=== PATIENT | female | born 1995 | race Caucasian/White ===

== ENCOUNTER 2016-09-25 19:43 | Emergency (ER) | payer MEDICAID ==
[2016-09-25 20:20] VITALS: BP 121/69
[2016-09-25] MEDS ORDERED: Sodium Chloride 0.9% 1,000 ML IV ONE (21:34)
--- NOTE | 2016-09-25 21:40 | EDM.PDOC ---
ED HPI GENERAL MEDICAL PROBLEM - General Chief Complaint: General Stated Complaint: LIGHTHEADED,DIZZINESS,FATIGUE Time Seen by Provider: 09/25/16 21:25 Source of Information: Reports: Patient History Limitations: Reports: No limitations - History of Present Illness INITIAL COMMENTS - FREE TEXT/NARRATIVE: This 21 yo female patient reports to the ED with intermittent dizziness and nausea for the past 2 weeks. The patient reports she is currently and had a WIC appointment this morning. During her WIC appointment, the patient was advised that her hemoglobin was a little low and that she should contact her provider. The patient did not have time to get into her primary care facility today. When she got up from a nap, the patient noticed the dizziness and called her mother to bring her into the ED for evaluation. The patient reports she has not been eating well, but has been drinking plenty of fluids. Onset: gradual Duration: Week(s):, Intermittent Location: Reports: generalized Quality: Reports: Dull Severity: moderate Improves with: Reports: None Worsens with: Reports: None Context: Reports: Other Treatments MANAGER COST: Reports: Other (see below) Right Headache Pain Score (Numeric/FACES): 6 - Related Data Allergies Allergy/AdvReac Type Severity Reaction Status Date / Time No Known Allergies Allergy Verified 09/25/16 20:10 Home Meds: Home Meds Albuterol Sulfate [Ventolin Hfa] 1 puff INH Q8H 10/30/15 [History] Pnv No.122/Iron/Folic Acid [ Multi Tablet] 1 tab PO DAILY 09/04/16 [ History] Past Medical History - Past Health History Medical/Surgical History: Denies Medical/Surgical History HEENT History: Reports: None Cardiovascular History: Reports: None Respiratory History: Reports: Asthma Gastrointestinal History: Reports: None Genitourinary History: Reports: None HEALTH OUTCOMES LIAISON History: Reports: Musculoskeletal History: Reports: None Neurological History: Reports: None Psychiatric History: Reports: None Endocrine/Metabolic History: Reports: None Hematologic History: Reports: None Immunologic History: Reports: None Oncologic (Cancer) History: Reports: None Dermatologic History: Reports: None - Infectious Disease History Infectious Disease History: Reports: None - Past Surgical History Head Surgeries/Procedures: Reports: None HEENT Surgical History: Reports: Adenoidectomy, Tonsillectomy GI Surgical History: Reports: Appendectomy Social & Family History - Family History Family Medical History: Noncontributory - Tobacco Use Smoking Status *Q: Light Tobacco Smoker Years of Tobacco use: 4 Packs/Tins Daily: 0.2 Used Tobacco, but Quit: No Month Tobacco Last Used: 11/2014 Second Hand Smoke Exposure: Yes - Caffeine Use Caffeine Use: Reports: None - Alcohol Use Days Per Week of Alcohol Use: 0 - Recreational Drug Use Recreational Drug Use: No - Living Situation & Occupation Living situation: Reports: single, with family Occupation: student (and employed) ED ROS GENERAL - Review of Systems Review Of Systems: See Below Constitutional: Reports: no symptoms HEENT: Reports: No symptoms Respiratory: Reports: no symptoms Cardiovascular: Reports: Lightheadedness (intermittent ) Endocrine: Reports: no symptoms GI/Abdominal: Reports: No symptoms : Reports: no symptoms Musculoskeletal: Reports: no symptoms Skin: Reports: no symptoms Neurological: Reports: no symptoms Psychiatric: Reports: No symptoms Hematologic/Lymphatic: Reports: anemia (reported by WIC this morning) Immunologic: Reports: no symptoms ED EXAM, GENERAL - Physical Exam Exam: See Below Exam Limited By: No limitations General Appearance: alert, WD/WN, mild distress Eye Exam: bilateral eye: EOMI, normal inspection, PERRL Ears: normal external exam, normal canal, hearing grossly normal, normal TMs Nose: normal inspection, normal mucosa, no blood Throat/Mouth: Normal inspection, Normal lips, Normal teeth, Normal gums, Normal oropharynx, Normal voice, No airway compromise Head: atraumatic, normocephalic Neck: normal inspection, supple, non-tender, full range of motion Respiratory/Chest: no respiratory distress, lungs clear, normal breath sounds, no accessory muscle use, chest non-tender Cardiovascular: normal peripheral pulses, regular rate, rhythm, no edema, no gallop, no JVD, no murmur, no rub GI/Abdominal: normal bowel sounds, soft, non tender, no organomegaly, no distention, no abnormal bruit, no mass (Female) Exam: Deferred Rectal (Female) Exam: Deferred Back Exam: normal inspection, full range of motion, NT Extremities: normal inspection, normal range of motion, non-tender, normal capillary refill, no pedal edema Neurological: alert, oriented, CN II-XII intact, normal cognition, normal gait, normal reflexes, no motor/sensory deficits Psychiatric: normal affect, normal mood Skin Exam: Warm, Dry, Intact, Normal color, No rash Lymphatic: no adenopathy Course - Vital Signs Last Recorded V/S: Last Vital Signs Temp 36.7 C 09/25/16 19:50 Pulse 75 09/25/16 19:50 Resp 16 09/25/16 19:50 BP 121/69 09/25/16 19:50 Pulse Ox 100 09/25/16 21:45 - Orders/Labs/Meds Orders: Active Orders 24 hr Category Date Time Status Sodium Chloride 0.9% [Normal Saline] 1,000 ml Med 09/25/16 21:34 Active IV .BOLUS Medication Orders Sodium Chloride (Normal Saline) 1,000 mls @ 999 mls/hr IV .BOLUS ONE Stop: 09/25/16 22:34 Last Admin: 09/25/16 22:00 Dose: 999 mls/hr Labs: Laboratory Tests 09/25/16 09/25/16 Range/Units 21:42 21:42 WBC 9.1 (5.0-10.0) 10^3/uL RBC 4.58 (4.2-5.4) 10^6/uL Hgb 10.5 L (12.0-16.0) g/dL Hct 34.6 L (37.0-47.0) % MCV 75.5 L (80-100) fL MCH 22.9 L (27.0-34.0) pg MCHC 30.3 L (33.0-35.0) g/dL Plt Count 220 (150-450) 10^3/uL Neut % (Auto) 56.2 (42.2-75.2) % Lymph % (Auto) 33.6 (20.5-50.1) % [place] % (Auto) 8.0 (2-8) % Eos % (Auto) 1.9 (1.0-3.0) % Baso % (Auto) 0.3 (0.0-1.0) % Sodium 137 (135-145) mmol/L Potassium 3.5 L (3.6-5.0) mmol/L Chloride 105 (101-111) mmol/L Carbon Dioxide 24.0 (21.0-31.0) mmol/L Anion Gap 11.5 BUN 10 (7-18) mg/dL Creatinine 0.5 L (0.6-1.3) mg/dL Est Cr Clr Drug Dosing 187.57 mL/min Estimated GFR (MDRD) > 60 BUN/Creatinine Ratio 20.00 Glucose 90 (74-105) mg/dL Calcium 8.5 (8.4-10.2) mg/dl Total Bilirubin 0.6 (0.2-1.0) mg/dL AST 18 (10-42) IU/L ALT 19 (10-60) IU/L Alkaline Phosphatase 51 (42-121) IU/L Total Protein 6.9 (6.7-8.2) g/dl Albumin 3.7 (3.2-5.5) g/dl Globulin 3.2 Albumin/Globulin Ratio 1.16 Meds: Medications Generic Name Dose Route Start Last Admin Trade Name Freq PRN Reason Stop Dose Admin Sodium Chloride 1,000 mls @ 999 mls/hr 09/25/16 21:34 09/25/16 22:00 Normal Saline IV 09/25/16 22:34 999 mls/hr .BOLUS ONE Administration Departure - Departure Time of Disposition: 22:45 Disposition: Home, Self-Care 01 Condition: fair Clinical Impression: Anemia affecting in first trimester Qualifiers: Weeks of gestation: 8 weeks Qualified Code(s): Z3A.08 - 8 weeks gestation of Instructions: First Trimester of , Jkon-ox-Asrx, Anemia, Nonspecific Forms: ED Department Discharge Care Plan Goals: The patient was advised of the examination and lab results during the visit. The patient was given a liter of IV fluids while in the ED. The patient was encouraged to continue to take her vitamins and eat small, frequent healthy meals. The patient should follow-up with her release specialist for continued evaluation and further management. If the patient has any additional symptoms or concerns, the patient should follow-up with her primary care facility or return to the emergency department. - My Orders Last 24 Hours: My Active Orders 09/25/16 21:34 Sodium Chloride 0.9% [Normal Saline] 1,000 ml IV .BOLUS - Assessment/Plan Last 24 Hours: My Active Orders 09/25/16 21:34 Sodium Chloride 0.9% [Normal Saline] 1,000 ml IV .BOLUS
[2016-09-25 22:08] LABS: CHLORIDE,CL 105 mmol/L (101-111); SODIUM,NA 137 mmol/L (135-145)
== END 2016-09-25 22:51 | disposition home or self-care (01) ==
LOC: DL.ED 19:43
DX: O99.011 Anemia complicating pregnancy, first trimester (principal); J45.909 Unspecified asthma, uncomplicated; O99.331 Smoking (tobacco) complicating pregnancy, first trimester; F17.210 Nicotine dependence, cigarettes, uncomplicated; Z3A.08 8 weeks gestation of pregnancy; Z98.890 Other specified postprocedural states; Z90.49 Acquired absence of other specified parts of digestive tract
CPT/HCPCS: 36415; 80053; 85025; 96360; 99283; J7030

== ENCOUNTER 2016-10-21 18:30 | Emergency (ER) | payer MEDICAID ==
[2016-10-21 18:46] VITALS: BP 115/65
--- NOTE | 2016-10-21 19:18 | EDM.PDOC ---
ED HISTORY OF PRESENT ILLNESS - General Chief Complaint: Respiratory Problem Stated Complaint: COUGHING W/CHEST PAIN AND SHORTNESS OF BREATH Time Seen by Provider: 10/21/16 19:00 Source of Information: Reports: Patient History Limitations: Reports: No limitations - History of Present Illness INITIAL COMMENTS - FREE TEXT/NARRATIVE: This 21 yo female patient reports to the ED with a 1 week history of a cough ( producing green sputum) and chest pain. The patient reports her chest pain started this afternoon at about 1300 and has continued since that time. The patient reports she is currently and has not had any problems during her . The patient reports no history of GERD, but her father reports he does have acid reflux. Symptom Onset Date: 10/14/16 Timing/Duration: Reports: Week(s): (1 week), Constant, Getting worse Severity: moderate Location, General: Reports: chest Quality: Reports: Ache, Dull Improves with: Reports: None Worsens with: Reports: Other (coughing and breathing) Context, General: Reports: Other Associated Symptoms (General): Reports: cough Treatments PRIMARY CARE PROVIDER: Reports: Cold therapy - Related Data Allergies/ADRs: Allergies Allergy/AdvReac Type Severity Reaction Status Date / Time No Known Allergies Allergy Verified 10/21/16 18:48 Home Meds: Home Meds Albuterol Sulfate [Ventolin Hfa] 1 puff INH Q8H 10/30/15 [History] Pnv No.122/Iron/Folic Acid [ Multi Tablet] 1 tab PO DAILY 09/04/16 [ History] Past Medical History - Past Health History Medical/Surgical History: Denies Medical/Surgical History HEENT History: Reports: None Cardiovascular History: Reports: None Respiratory History: Reports: Asthma Gastrointestinal History: Reports: None Genitourinary History: Reports: None 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: Musculoskeletal History: Reports: None Neurological History: Reports: None Psychiatric History: Reports: None Endocrine/Metabolic History: Reports: None Hematologic History: Reports: None Immunologic History: Reports: None Oncologic (Cancer) History: Reports: None Dermatologic History: Reports: None - Infectious Disease History Infectious Disease History: Reports: None - Past Surgical History Head Surgeries/Procedures: Reports: None HEENT Surgical History: Reports: Adenoidectomy, Tonsillectomy GI Surgical History: Reports: Appendectomy Social & Family History - Family History Family Medical History: Noncontributory - Tobacco Use Smoking Status *Q: Never Smoker Years of Tobacco use: 4 Packs/Tins Daily: 0.2 Used Tobacco, but Quit: No Month Tobacco Last Used: 11/2014 Second Hand Smoke Exposure: No - Caffeine Use Caffeine Use: Reports: Soda - Alcohol Use Days Per Week of Alcohol Use: 0 - Recreational Drug Use Recreational Drug Use: No - Living Situation & Occupation Living situation: Reports: single, with family Occupation: student (and employed) ED ROS GENERAL - Review of Systems Review Of Systems: See Below Constitutional: Reports: no symptoms HEENT: Reports: No symptoms Respiratory: Reports: Cough Cardiovascular: Reports: Chest pain Endocrine: Reports: no symptoms GI/Abdominal: Reports: No symptoms : Reports: no symptoms Musculoskeletal: Reports: no symptoms Skin: Reports: no symptoms Neurological: Reports: No Symptoms Psychiatric: Reports: No symptoms Hematologic/Lymphatic: Reports: no symptoms Immunologic: Reports: no symptoms ED EXAM, GENERAL - Physical Exam Exam: See Below Exam Limited By: No limitations General Appearance: alert, WD/WN, mild distress Eye Exam: bilateral eye: EOMI, normal inspection, PERRL Ears: normal external exam, normal canal, hearing grossly normal, normal TMs Nose: normal inspection, normal mucosa, no blood Throat/Mouth: Normal inspection, Normal lips, Normal teeth, Normal gums, Normal oropharynx, Normal voice, No airway compromise Head: atraumatic, normocephalic Neck: normal inspection, supple, non-tender, full range of motion Respiratory/Chest: rhonchi (bilateral bases), other (anterior chest pain) Cardiovascular: normal peripheral pulses, regular rate, rhythm, no edema, no gallop, no JVD, no murmur, no rub GI/Abdominal: normal bowel sounds, soft, non tender, no organomegaly, no distention, no abnormal bruit, no mass (Female) Exam: Deferred Rectal (Female) Exam: Deferred Back Exam: normal inspection, full range of motion, NT Extremities: normal inspection, normal range of motion, non-tender, normal capillary refill, no pedal edema Neurological: alert, oriented, CN II-XII intact, normal cognition, normal gait, normal reflexes, no motor/sensory deficits Psychiatric: normal affect, normal mood Skin Exam: Warm, Dry, Intact, Normal color, No rash Lymphatic: no adenopathy Course - Vital Signs Last Recorded V/S: Last Vital Signs Temp 35.9 C 10/21/16 18:40 Pulse 95 10/21/16 18:40 Resp 16 10/21/16 18:40 BP 115/65 10/21/16 18:40 Pulse Ox 100 10/21/16 18:40 - Orders/Labs/Meds Orders: Active Orders 24 hr Category Date Time Status EKG Documentation Completion [RC] URGENT Care 10/21/16 19:10 Active Labs: Laboratory Tests 10/21/16 10/21/16 Range/Units 19:25 19:25 WBC 12.7 H (5.0-10.0) 10^3/uL RBC 4.51 (4.2-5.4) 10^6/uL Hgb 10.6 L (12.0-16.0) g/dL Hct 33.7 L (37.0-47.0) % MCV 74.7 L (80-100) fL MCH 23.5 L (27.0-34.0) pg MCHC 31.5 L (33.0-35.0) g/dL Plt Count 218 (150-450) 10^3/uL Neut % (Auto) 76.7 H (42.2-75.2) % Lymph % (Auto) 16.4 L (20.5-50.1) % [place] % (Auto) 6.3 (2-8) % Eos % (Auto) 0.5 L (1.0-3.0) % Baso % (Auto) 0.1 (0.0-1.0) % Sodium 135 (135-145) mmol/L Potassium 3.7 (3.6-5.0) mmol/L Chloride 102 (101-111) mmol/L Carbon Dioxide 23.0 (21.0-31.0) mmol/L Anion Gap 13.7 BUN 9 (7-18) mg/dL Creatinine 0.6 (0.6-1.3) mg/dL Est Cr Clr Drug Dosing TNP Estimated GFR (MDRD) > 60 BUN/Creatinine Ratio 15.00 Glucose 80 (74-105) mg/dL Calcium 9.1 (8.4-10.2) mg/dl Total Bilirubin 0.8 (0.2-1.0) mg/dL AST 16 (10-42) IU/L ALT 19 (10-60) IU/L Alkaline Phosphatase 55 (42-121) IU/L Troponin I < 0.02 (0.00-0.02) ng/ml Total Protein 6.9 (6.7-8.2) g/dl Albumin 3.6 (3.2-5.5) g/dl Globulin 3.3 Albumin/Globulin Ratio 1.09 Meds: Medications Discontinued Medications Generic Name Dose Route Start Last Admin Trade Name Dori PRN Reason Stop Dose Admin Azithromycin 500 mg 10/21/16 20:04 Zithromax PO 10/21/16 20:05 ONETIME ONE Departure - Departure Time of Disposition: 20:05 Disposition: Home, Self-Care 01 Condition: fair Clinical Impression: Bronchitis, Bronchitis Instructions: Acute Bronchitis, [id number] Forms: ED Department Discharge Care Plan Goals: The patient and family were advised of the examination and lab results during the visit. The patient was given an oral dose of Azithromycin (500 mg) while in the ED. The patient was given a script for Azithromycin (250 mg) #4 to take 1 by mouth daily for 4 days. If the patient has any additional symptoms or further concerns, the patient should follow-up with her primary care provider or return to the emergency department. - My Orders Last 24 Hours: My Active Orders 10/21/16 19:10 EKG Documentation Completion [RC] URGENT - Assessment/Plan Last 24 Hours: My Active Orders 10/21/16 19:10 EKG Documentation Completion [RC] URGENT
[2016-10-21 19:50] LABS: CHLORIDE,CL 102 mmol/L (101-111); SODIUM,NA 135 mmol/L (135-145)
[2016-10-21] MEDS ORDERED: Azithromycin 250 MG Tab PO ONE (20:04)
--- NOTE | 2016-12-12 12:14 | EKG ---
10/21/2016 - TARA FAY - EKG is sinus rhythm with a rate of 83. Normal LA interval. Normal axis. EKG is within normal limits. [facility] /[id number]
== END 2016-10-21 20:11 | disposition home or self-care (01) ==
LOC: DL.ED 18:30
DX: J40 Bronchitis, not specified as acute or chronic (principal); Z98.890 Other specified postprocedural states; Z90.49 Acquired absence of other specified parts of digestive tract
CPT/HCPCS: 36415; 80053; 84484; 85025; 93005; 99283; A9270

== ENCOUNTER 2017-03-09 20:20 | Emergency (ER) | payer MEDICAID ==
[2017-03-09 20:34] VITALS: BP 115/70
[2017-03-09] MEDS ORDERED: Albuterol/Ipratropium 3.0-0.5 MG/3 ML Neb Soln NEB ONE (20:43)
--- NOTE | 2017-03-09 20:49 | EDM.PDOC ---
[id number]: CHEST PAIN, HARD TO BREATH, [id number] Time Seen by Provider: 03/09/17 20:43 Source of Information: Reports: Patient History Limitations: Reports: No Limitations - History of Present Illness INITIAL COMMENTS - FREE TEXT/NARRATIVE: been coughing few days worse today. also Chest Pain Score (Numeric/FACES): 7 - Related Data Allergies Allergy/AdvReac Type Severity Reaction Status Date / Time No Known Allergies Allergy Verified 03/09/17 20:34 Home Meds: Home Meds Albuterol Sulfate [Ventolin Hfa] 2 puff INH Q8H PRN 10/30/15 [History] Pnv No.122/Iron/Folic Acid [ Multi Tablet] 1 tab PO DAILY 09/04/16 [ History] Acetaminophen [Tylenol Extra Strength] 2 tab PO Q6H PRN 02/01/17 [History] Past Medical History - Past Health History Medical/Surgical History: Denies Medical/Surgical History HEENT History: Reports: None Cardiovascular History: Reports: None Respiratory History: Reports: Asthma Gastrointestinal History: Reports: None Genitourinary History: Reports: None 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: Musculoskeletal History: Reports: None Neurological History: Reports: None Psychiatric History: Reports: None Endocrine/Metabolic History: Reports: None Hematologic History: Reports: Anemia Immunologic History: Reports: None Oncologic (Cancer) History: Reports: None Dermatologic History: Reports: None - Infectious Disease History Infectious Disease History: Reports: None - Past Surgical History Head Surgeries/Procedures: Reports: None HEENT Surgical History: Reports: Adenoidectomy, Tonsillectomy GI Surgical History: Reports: Appendectomy Social & Family History - Family History Family Medical History: Noncontributory - Tobacco Use Smoking Status *Q: Former Smoker Years of Tobacco use: 4 Packs/Tins Daily: 0.5 Used Tobacco, but Quit: Yes Month Tobacco Last Used: September Second Hand Smoke Exposure: No - Caffeine Use Caffeine Use: Reports: Energy Drinks, Soda - Alcohol Use Days Per Week of Alcohol Use: 0 - Recreational Drug Use Recreational Drug Use: No - Living Situation & Occupation Living situation: Reports: Single, with Family Occupation: Student ED ROS GENERAL - Review of Systems Review Of Systems: ROS reveals no pertinent complaints other than HPI. ED EXAM, GENERAL - Physical Exam Exam: See Below Exam Limited By: No Limitations General Appearance: Alert, WD/WN, No Apparent Distress, Other (episodic cough spasms) Ears: Normal External Exam, Normal Canal, Hearing Grossly Normal, Normal TMs Throat/Mouth: Normal Inspection, Normal Oropharynx, Normal Voice, No Airway Compromise Head: Atraumatic Neck: Non-Tender, Full Range of Motion Respiratory/Chest: No Respiratory Distress, No Accessory Muscle Use, Rhonchi, Wheezing. No: Decreased Breath Sounds, Retractions, Splinting Cardiovascular: Regular Rate, Rhythm GI/Abdominal: Soft, Non-Tender Neurological: Alert, Oriented, Normal Cognition, Normal Gait, No Motor/Sensory Deficits Psychiatric: Normal Affect, Normal Mood Skin Exam: Warm, Dry, Normal Color Lymphatic: No Adenopathy Course - Vital Signs Last Recorded V/S: Last Vital Signs Temp 36.4 C 03/09/17 20:28 Pulse 109 H 03/09/17 20:43 Resp 16 03/09/17 20:28 BP 115/70 03/09/17 20:28 Pulse Ox 98 03/09/17 20:28 - Orders/Labs/Meds Orders: Active Orders 24 hr Category Date Time Status RT Aerosol Therapy [RC] ASDIRECTED Care 03/09/17 20:43 Active Meds: Medications Discontinued Medications Generic Name Dose Route Start Last Admin Trade Name Freq PRN Reason Stop Dose Admin Albuterol/Ipratropium 3 ml 03/09/17 20:43 03/09/17 20:46 Duoneb 3.0-0.5 Mg/3 Ml NEB 03/09/17 20:44 3 ml ONETIME ONE Administration Departure - Departure Time of Disposition: 20:50 Disposition: Home, Self-Care 01 Condition: Good Clinical Impression: Bronchospasm with bronchitis, acute - Discharge Information Instructions: Acute Bronchitis, [id number] Forms: ED Department Discharge Additional Instructions: 1) rest 2) take neb treatment 2 to 3 times daily for wheezing. 3) don't sleep flat at ight 4) follow up at clinic or recheck as needed rx given; albuterol 2.5mg solution bid-tid prn - My Orders Last 24 Hours: My Active Orders 03/09/17 20:43 RT Aerosol Therapy [RC] ASDIRECTED - Assessment/Plan Last 24 Hours: My Active Orders 03/09/17 20:43 RT Aerosol Therapy [RC] ASDIRECTED
== END 2017-03-09 20:56 | disposition home or self-care (01) ==
LOC: DL.ED 20:20
DX: J20.9 Acute bronchitis, unspecified (principal); J45.909 Unspecified asthma, uncomplicated; Z90.49 Acquired absence of other specified parts of digestive tract; Z98.890 Other specified postprocedural states; Z87.891 Personal history of nicotine dependence; Z79.899 Other long term (current) drug therapy
CPT/HCPCS: 94640; 99283

== ENCOUNTER 2017-04-30 10:22 | Inpatient (IN) | payer MEDICAID ==
[2017-04-30] MEDS ORDERED: Misoprostol 400 MCG (4 X 100 MCG TAB) RECTAL PRN (11:55)
[2017-04-30] MEDS ORDERED: Carboprost Tromethamine 250 MCG/1 ML Amp IM PRN (11:55)
[2017-04-30] MEDS ORDERED: Ondansetron 4 MG/2 ML SDV IV PRN (11:55)
[2017-04-30] MEDS ORDERED: Acetaminophen 325 MG Tab PO PRN (11:55)
[2017-04-30] MEDS ORDERED: Lactated Ringers 500 ML IV ONE (11:55)
[2017-04-30] MEDS ORDERED: Nalbuphine 20 MG/1 ML Amp IM PRN (11:55)
[2017-04-30] MEDS ORDERED: Sodium Chloride 0.9% 10 ML Syringe FLUSH PRN (11:55)
[2017-04-30] MEDS ORDERED: Methylergonovine 0.2 MG/1 ML Amp IM PRN (11:55)
[2017-04-30] MEDS ORDERED: Lidocaine 1% 30 ML SDV INJECT PRN (11:55)
[2017-04-30] MEDS: Lactated Ringers 1,000 ML IV SCH ×2 (14:24→21:11)
[2017-04-30] MEDS: Oxytocin/Normal Saline 30 UNIT/500 ML BAG IV SCH (14:26)
--- NOTE | 2017-04-30 19:46 | HP ---
CHIEF COMPLAINT: Leaking fluid. HISTORY OF PRESENT ILLNESS: The patient is a 22-year-old 2, para 1-0-0- 1, currently at 39 and 6/7 weeks gestation based on 8-week ultrasound, reporting around 10 o'clock this morning. She felt a small gush of fluid that saturated her underwear, but not her clothes. Her boss told her to come in to work for evaluation. Nitrazine and AmniSure testing are both positive. She is reporting some cramping or mild contractions, but nothing significant yet. No fever, chills, chest pain, shortness of breath, headaches, or blurry vision. No changes since our last visit. No vaginal bleeding. movement has been good. PAST MEDICAL HISTORY: History of posttraumatic headache, asthma, blood type O negative, dysmenorrhea, ear piercings, history of chickenpox, menometrorrhagia, prior Nexplanon removed, history of recurrent UTIs, negative urological followup, history of tobacco use is since quit, and history of chlamydia in 2012. PAST SURGICAL HISTORY: Laparoscopic appendectomy at age 14 or 15, and tonsillectomy and adenoidectomy at age 6. FAMILY HISTORY: Father has asthma. Sisters both have asthma. Paternal grandmother has diabetes. Paternal grandfather with brain cancer, also had diabetes. Maternal grandmother has breast cancer so do her great grandmother. Family history is negative for seizures, cystic fibrosis, bleeding disorders, clotting disorders, multiple births, defects, and anesthesia problems. SOCIAL HISTORY: She is single former smoker. Living with her fianceJosé and he works for [email or web address]. She was most recently working in [employer]. No alcohol or drug exposure during this . REVIEW OF SYSTEMS: As per the HPI. No new problems to report. PHYSICAL EXAMINATION: Vital Signs: Blood pressure 141/69, pulse of 96, temperature is 98.7, blood pressures in the clinic typically run in the 1 teens over 50s and 60s. Recheck blood pressure to be performed. HEENT: Normocephalic. Ears, eyes, nose, and throat are grossly unremarkable. Mucous membranes are moist. Neck: Supple without adenopathy. Heart: Regular without murmur. Lungs: Clear to auscultation bilaterally. Abdomen: Gravid, soft, and nontender. Cervical: Per nursing staff, 4 cm dilated, 75% effaced, clear amniotic fluid. [place] shows contractions, about every 4 to 6 minutes. Baseline heart rate 140 beats per minute with moderate [id number] variability. Accelerations noted. Extremities: Trace edema. No erythema or tenderness noted. LABORATORY DATA: Currently pending. ASSESSMENT: 1. A 39 and 6/7 weeks . 2. 2, para 1-0-0-1. 3. Blood type O negative. Rubella immune. Group B strep negative. 4. Former smoker. 5. Spontaneous rupture around 10:00 a.m. PLAN: The patient admitted to the hospital. Initial labor orders placed. Allow her to get up and walk around for a little while and see if that will kick into natural labor. If not, we will be augmenting with Pitocin if needed and anticipating vaginal delivery. Plans will be made should any problems or concerns arise. [facility] /[id number]
[2017-04-30] MEDS ORDERED: fentaNYL 100 MCG/2 ML SDV ONE (23:38)
[2017-05-01] MEDS: Lactated Ringers 1,000 ML IV SCH (00:04)
[2017-05-01] MEDS ORDERED: Benzocaine/Menthol 20%-0.5% Spray 56 GM Canister TOP PRN (01:15)
[2017-05-01] MEDS ORDERED: Simethicone 80 MG Tab.Chew PO PRN (01:15)
--- NOTE | 2017-05-01 01:30 | PN ---
DATE: 04/30/2017 SUBJECTIVE: A G2, P1, 22-year-old patient at 39 and 6/7th weeks' gestation, presented to the hospital earlier today with spontaneous rupture of membranes around 10:00 a.m. at work. She was not really making much progress throughout the day, but it had gotten up to 5 cm dilated, and I came over after clinic around 5 o'clock and checked her and there is still a forebag remaining, which was ruptured with Amnio Hook and return of clear fluid. Since that time, she has continued to make slow progress, and although contractions got more painful, overall she is not progressing. OBJECTIVE: Vital Signs: Blood pressure 113/64, pulse 79. She is afebrile. [place] was showing somewhat irregular contraction pattern, and after the rupture, we started Pitocin which was now running at 12. Baby's heart tracing is category 1. Cervix is examined and remains about 5-1/2 cm dilated, 80% effaced. Baby is fairly high and the head is not well applied to the cervix. IUPC was placed without difficulties with continued increase return of amniotic fluid. ASSESSMENT: 1. 2, para 1-0-0-1 at term. 2. Premature rupture of membranes. 3. Augmentation of labor with failure to progress at this time. PLAN: We will monitor her labor with the IUPC and increase Pitocin as necessary to help with labor progress. Still anticipating vaginal delivery. The patient understands complications or problems could arise that we would need to proceed with section, and questions were answered. [facility] /[id number]
[2017-05-01] MEDS: Oxytocin/Normal Saline 30 UNIT/500 ML BAG IV SCH (03:25)
--- NOTE | 2017-05-01 06:57 | PCM.PRNOTE ---
- Free Text/Narrative Note: Requested to provide analgesia to full term patient in severe pain. Upon entering the room, pt is lying on back complaining of severe abdominal pain and discomfort. Procedure was discussed with pt and significant other including adverse outcomes and expectations. Pt consented to analgesia, SAB/IT. Pt placed into a sitting position. Landmarks for SAB/IT were identified and marked. Back was prepped with betadine x3. A sterile, transparent, fenestrated drape was applied. Excess betadine was removed. Using 1 mL of a 2% lidocaine solution, a skin wheel was placed at the L3/L4 interspace. A 24 ga (4 inch) pencan spinal needle was inserted until positive for CSF. Negative for heme or paresthesias. Injected fentanly 20 mcg, sufenta 10 mcg, and 15 mg of a 0.75% bupivicaine solution with an epi wash. Pt was placed left lateral position for approximately 10 minutes. There were zero complications or adverse outcomes. Will continue to monitor
[2017-05-01] MEDS: Ibuprofen 800 MG Tab PO PRN ×2 (08:21→18:45)
[2017-05-01] MEDS: Prenatal Multivitamin with Calcium/Folic Acid/Iron Tab PO SCH (08:21)
[2017-05-01] MEDS ORDERED: fentaNYL 100 MCG/2 ML SDV ITHECAL ONE (14:49)
[2017-05-01] MEDS: Docusate Sodium 100 MG Cap PO PRN (21:41)
--- NOTE | 2017-05-01 23:18 | DEL ---
DATE: 05/01/2017 PREPROCEDURE DIAGNOSES: 1. A 40 and 0/7 weeks. 2. 2, para 1-0-0-1. 3. Former smoker. 4. Premature rupture of membranes. POSTPROCEDURE DIAGNOSES: 1. A 40 and 0/7 weeks. 2. 2, now para 2-0-0-2. 3. Former smoker. 4. Premature rupture of membranes. 5. Status post spontaneous vaginal delivery with 5 second shoulder dystocia. BRIEF HISTORY: A 22-year-old female, presented to the hospital this morning shortly after 10:00 a.m. reporting rupture of fluid and confirmed with Nitrazine and AmniSure. She was allowed to ambulate and continue into labor on her own and probably started into active labor at around 2:00 p.m., and she did finally reach 4 cm dilated. After that, she continued to make minimal to no progress. Therefore, augmentation with Pitocin initiated and forebag ruptured at 5:00 p.m. She ultimately had about 11 hours of stage I, and after her intrathecal, went from 5 cm to complete within about 2 hours after pushing for 13 minutes. She had a successful vaginal delivery as outlined below. Labor was monitored with an intrauterine pressure catheter as well. Her pain was controlled with the intrathecal. PROCEDURE IN DETAIL: The patient in dorsal lithotomy position, she delivered a viable female infant in the PAULO position over intact perineum. After delivery of the head, there was noted to be a nuchal cord which was reduced bluntly. The shoulder was not forthcoming, so the nurses laid the patient more supine and brought her knees back in to Mckayla. I entered the vagina with my right hand and applied pressure to the anterior shoulder for a corkscrew maneuver and the baby's anterior shoulder delivered readily thereafter followed by the remainder of the infant. The baby's skin color was overall purple, and she was attempting to cry, but not actually moving air. So mouth and nose were bulb suctioned and baby placed on mother's abdomen, and she started to respond to more drying, stimulating, and continued suction. Three-vessel umbilical cord was doubly clamped and then cut. The placenta delivered by gentle cord traction and concomitant uterine massage. During this time, the baby's color was improving, but I felt she needed assessment at the warmer, so she was taken over to the warmer to be further examined by the nurses and did well. After placenta delivered, labia and vagina were inspected. No posterior lacerations. There were 2 anterior left lacerations which were repaired with 4-0 Vicryl in a simple running fashion and reapproximated well. COMPLICATIONS: None. ESTIMATED BLOOD LOSS: 400 mL. DISPOSITION: Mother and baby to stay in the room at this time to initiate breast-feeding. [facility] /[id number] RUMA
[2017-05-02] MEDS: Ibuprofen 800 MG Tab PO PRN (02:33)
[2017-05-02] MEDS: Prenatal Multivitamin with Calcium/Folic Acid/Iron Tab PO SCH (08:23)
[2017-05-02] MEDS: Docusate Sodium 100 MG Cap PO PRN (08:23)
[2017-05-02 08:43] VITALS: BP 114/70
--- NOTE | 2017-05-03 05:29 | DISCH ---
BRIEF HISTORY AND HOSPITAL COURSE: This patient is a very pleasant 22-year-old 2, now para 2 patient, who recently has had a vaginal delivery by Dr. Ruano. The course reveals that the patient was GBS negative. She was immune to rubella, and her blood type is O negative, unsensitized. She is a former smoker. She did experience premature rupture of membranes with positive AmniSure testing when she entered the hospital on 05/01/2017. Another forebag was ruptured at 1700 hours artificially. IV Pitocin augmentation of labor was utilized, and the patient did have intrathecal analgesia. Please see Dr. Ruano's admission history and physical and delivery report/procedure dictation for further details. Essentially, the patient did proceed on very nicely and had a spontaneous vaginal delivery at 0149 hours, and this was a viable female, who had scores of 8 and 10, and the weight was later reported as 8 pounds. Two small anterior lacerations were sutured with 4-[address] Ruano. No other significant lacerations were encountered. The first stage of labor was 11 hours, the second stage of labor was 13 minutes, and the third stage of labor was 5 minutes. Placenta was delivered spontaneous and intact. Admission hemoglobin was 13.2 and discharge hemoglobin was 12.6. She has continued to do well in the . I have rounded on the patient for Dr. Ruano today on 05/02/2017 or on the first day. The patient definitely wishes to go home today and not tomorrow. Today's examination reveals that her extremities are negative, and the fundus is firm. Her vital signs are normal. DISCHARGE INSTRUCTIONS: Consisted of please letting us know at once if any excess fever, excess pain, excess bleeding, or any breast, chest, breathing, or lower extremity problems whatsoever. We also did urge her to do gradual progressive ambulation everyday at home. She will avoid intercourse for approximately 6 weeks. She will avoid driving a car for approximately 7 to 10 days. The walking upstairs is permitted. Her diet on discharge is regular. Her condition is good. DISCHARGE MEDICATIONS: Consist of: 1. Tylenol p.r.n. as directed. 2. Ibuprofen p.r.n. as directed. 3. Also, Colace b.i.d. p.r.n. FOLLOWUP APPOINTMENT: She will see Dr. Ruano in the clinic in approximately 6 weeks, and she will certainly call before that time if any questions or problems. We have discussed the baby with Dr. Puja Quiñones, and Dr. Quiñones will see the baby in approximately the next week. It should be mentioned that RhoGAM has been administered . FINAL DIAGNOSES: 1. Term , delivered. 2. Rh negative, unsensitized. 3. There was slight 5 seconds of shoulder dystocia as reported by Dr. Ruano. OPERATIONS AND PROCEDURES: Spontaneous vaginal delivery with repair of 2 small anterior lacerations on 05/01/2017. [facility] /[id number]
== END 2017-05-02 11:45 | disposition home or self-care (01) | DRG 775 ==
LOC: DL.OBCHECK 10:22 → DL.OB 11:48 → OBSVTOIN 05-01 01:49
PROVIDERS: ADMIT Family Medicine; ATTEND Family Medicine
PROC: 4A1HXFZ Monitoring of Products of Conception, Cardiac Rhythm, External Approach (ICD-10-PCS; principal; 2017-05-01)
PROC: 3E0R3BZ Introduction of Anesthetic Agent into Spinal Canal, Percutaneous Approach (ICD-10-PCS; 2017-05-01)
PROC: 00HU33Z Insertion of Infusion Device into Spinal Canal, Percutaneous Approach (ICD-10-PCS; 2017-05-01)
PROC: 10E0XZZ Delivery of Products of Conception, External Approach (ICD-10-PCS; 2017-05-01)
DX: O42.02 Full-term premature rupture of membranes, onset of labor within 24 hours of rupture (principal); Z37.0 Single live birth; Z3A.40 40 weeks gestation of pregnancy; O66.0 Obstructed labor due to shoulder dystocia; O70.9 Perineal laceration during delivery, unspecified; O69.81X0 Labor and delivery complicated by cord around neck, without compression, not applicable or unspecified; Z87.891 Personal history of nicotine dependence
CPT/HCPCS: 01967; 36415; 59409; 83986; 84112; 85027; 85461; 86850; 86870; 86900; 86901; A9270-GY; J2405; J2590; J2790; J3010; J7120

== ENCOUNTER 2018-01-26 23:38 | Emergency (ER) | payer BC, MEDICAID ==
[2018-01-26 23:44] VITALS: BP 129/65
[2018-01-26] MEDS ORDERED: Sodium Chloride 0.9% 10 ML Syringe FLUSH PRN (23:51)
[2018-01-27 00:25] LABS: ANION GAP 11.9; CHLORIDE,CL 105 mmol/L (101-111); SODIUM,NA 136 mmol/L (135-145)
--- NOTE | 2018-01-27 00:48 | EDM.PDOC ---
ED HPI GENERAL MEDICAL PROBLEM - General Chief Complaint: Headache Stated Complaint: HEADACHE, NAUSEA, BODY ACHES [id number] Time Seen by Provider: 01/27/18 00:01 Source of Information: Reports: Patient, RN, RN Notes Reviewed History Limitations: Reports: No Limitations - History of Present Illness INITIAL COMMENTS - FREE TEXT/NARRATIVE: Pt to ER with c/o sudden onset body aches, neck pain, nausea, dizziness, headache. Patient states she was driving back from [place] today when she began having these symptoms. She states she had multiple bug bites while in [place]. Denies fever or chills, N/V/D, chest pains or SOB. Onset: Today, Sudden Middle Neck Pain Score (Numeric/FACES): 6 - Related Data Allergies Allergy/AdvReac Type Severity Reaction Status Date / Time No Known Allergies Allergy Verified 04/30/17 13:40 Home Meds: Home Meds Albuterol Sulfate [Ventolin Hfa] 2 puff INH Q8H PRN 10/30/15 [History] Pnv No.122/Iron/Folic Acid [ Multi Tablet] 1 tab PO DAILY 09/04/16 [ History] Acetaminophen [Tylenol Extra Strength] 2 tab PO Q6H PRN 02/01/17 [History] Ferrous Sulfate [Iron] 1 tab PO BID 04/15/17 [History] Past Medical History - Past Health History Medical/Surgical History: Denies Medical/Surgical History HEENT History: Reports: None Cardiovascular History: Reports: None Respiratory History: Reports: Asthma Gastrointestinal History: Reports: None Genitourinary History: Reports: None [employer] History: Reports: Musculoskeletal History: Reports: None Neurological History: Reports: None Psychiatric History: Reports: None Endocrine/Metabolic History: Reports: None Hematologic History: Reports: Anemia Immunologic History: Reports: None Oncologic (Cancer) History: Reports: None Dermatologic History: Reports: None - Infectious Disease History Infectious Disease History: Reports: None - Past Surgical History Head Surgeries/Procedures: Reports: None HEENT Surgical History: Reports: Adenoidectomy, Tonsillectomy GI Surgical History: Reports: Appendectomy Social & Family History - Family History Family Medical History: Noncontributory - Tobacco Use Smoking Status *Q: Former Smoker Used Tobacco, but Quit: Yes Month/Year Tobacco Last Used: 09/2016 - Caffeine Use Caffeine Use: Reports: Soda - Recreational Drug Use Recreational Drug Use: No - Living Situation & Occupation Living situation: Reports: Single, with Family Occupation: Student ED ROS GENERAL - Review of Systems Review Of Systems: ROS reveals no pertinent complaints other than HPI. ED EXAM, GENERAL - Physical Exam Exam: See Below Exam Limited By: No Limitations General Appearance: Alert, WD/WN, No Apparent Distress Eye Exam: Bilateral Eye: EOMI, Normal Inspection, PERRL (3 brisk) Ears: Normal External Exam, Normal Canal, Hearing Grossly Normal, Normal TMs Nose: Normal Inspection Throat/Mouth: Normal Inspection, Normal Lips, Normal Teeth, Normal Gums, Normal Oropharynx, Normal Voice, No Airway Compromise Head: Atraumatic, Normocephalic Neck: Normal Inspection, Supple, Full Range of Motion, Tender Lateral (left lateral neck, muscle) Respiratory/Chest: No Respiratory Distress, Lungs Clear, Normal Breath Sounds, No Accessory Muscle Use, Chest Non-Tender Cardiovascular: Normal Peripheral Pulses, Regular Rate, Rhythm, No Edema, No Gallop, No JVD, No Murmur, No Rub Peripheral Pulses: 2+: Radial (L), Radial (R) GI/Abdominal: Normal Bowel Sounds, Soft, Non-Tender (Female) Exam: Deferred Rectal (Female) Exam: Deferred Back Exam: Normal Inspection, Full Range of Motion Extremities: Normal Inspection, Normal Range of Motion, Non-Tender, Normal Capillary Refill, No Pedal Edema Neurological: Alert, Oriented, CN II-XII Intact, Normal Cognition, Normal Gait, Normal Reflexes, No Motor/Sensory Deficits Psychiatric: Normal Affect, Normal Mood Skin Exam: Warm, Dry, Intact, Normal Color, No Rash, Other (bug bites noted to the arms and legs) Lymphatic: No Adenopathy Course - Vital Signs Last Recorded V/S: Last Vital Signs Temp 97.8 F 01/26/18 23:43 Pulse 76 01/26/18 23:43 Resp 14 01/26/18 23:43 BP 129/65 01/26/18 23:43 Pulse Ox 99 01/26/18 23:43 - Orders/Labs/Meds Orders: Active Orders 24 hr Category Date Time Status Peripheral IV Care [RC] . DIRECTED Care 01/26/18 23:52 Active HCG QUALITATIVE,URINE [URCHEM] Stat Lab 01/27/18 00:40 Ordered LYME, TOTAL AB TEST/REFLEX [REF] Urgent Lab 01/26/18 23:57 Received UA W/MICROSCOPIC [URIN] Stat Lab 01/27/18 00:40 Ordered WEST NILE VIRUS IGM [REF] Stat Lab 01/26/18 23:57 Received Peripheral IV Insertion Adult [OM.PC] Stat Oth 01/26/18 23:51 Ordered Labs: Laboratory Tests 01/26/18 01/26/18 01/26/18 Range/Units 00:07 23:57 23:57 WBC 7.6 (5.0-10.0) 10^3/uL RBC 4.79 (4.2-5.4) 10^6/uL Hgb 12.5 (12.0-16.0) g/dL Hct 39.8 (37.0-47.0) % MCV 83.1 D (80-100) fL MCH 26.1 L (27.0-34.0) pg MCHC 31.4 L (33.0-35.0) g/dL Plt Count 271 D (150-450) 10^3/uL Neut % (Auto) 44.7 (42.2-75.2) % Lymph % (Auto) 43.5 (20.5-50.1) % Jewell % (Auto) 9.1 H (2-8) % Eos % (Auto) 2.2 (1.0-3.0) % Baso % (Auto) 0.5 (0.0-1.0) % Sodium 136 (135-145) mmol/L Potassium 3.9 (3.6-5.0) mmol/L Chloride 105 (101-111) mmol/L Carbon Dioxide 23.0 (21.0-31.0) mmol/L Anion Gap 11.9 BUN 16 (7-18) mg/dL Creatinine 0.8 (0.6-1.3) mg/dL Est Cr Clr Drug Dosing 116.25 mL/min Estimated GFR (MDRD) > 60 BUN/Creatinine Ratio 20.00 Glucose 93 (74-105) mg/dL Lactic Acid 0.7 (0.5-2.2) mmol/L Calcium 9.1 (8.4-10.2) mg/dl Total Bilirubin 0.7 (0.2-1.0) mg/dL AST 19 (10-42) IU/L ALT 18 (10-60) IU/L Alkaline Phosphatase 65 (42-121) IU/L Total Protein 7.3 (6.7-8.2) g/dl Albumin 3.7 (3.2-5.5) g/dl Globulin 3.6 Albumin/Globulin Ratio 1.03 Urine Color (YELLOW) Urine Appearance (CLEAR) Urine pH (5.0-9.0) Ur Specific Irving (1.005-1.030) Urine Protein (NEGATIVE) Urine Glucose (UA) (NEGATIVE) Urine Ketones (NEGATIVE) Urine Occult Blood (NEGATIVE) Urine Nitrite (NEGATIVE) Urine Bilirubin (NEGATIVE) Urine Urobilinogen (0.2-1.0) mg/dL Ur Leukocyte Esterase (NEGATIVE) Urine RBC /HPF Urine WBC (0-5/HPF) /HPF Ur Epithelial Cells /HPF Urine Bacteria (0-FEW/HPF) /HPF Urinalysis Comment Urine HCG, Qual 01/27/18 01/27/18 Range/Units 00:40 00:40 WBC (5.0-10.0) 10^3/uL RBC (4.2-5.4) 10^6/uL Hgb (12.0-16.0) g/dL Hct (37.0-47.0) % MCV (80-100) fL MCH (27.0-34.0) pg MCHC (33.0-35.0) g/dL Plt Count (150-450) 10^3/uL Neut % (Auto) (42.2-75.2) % Lymph % (Auto) (20.5-50.1) % Jewell % (Auto) (2-8) % Eos % (Auto) (1.0-3.0) % Baso % (Auto) (0.0-1.0) % Sodium (135-145) mmol/L Potassium (3.6-5.0) mmol/L Chloride (101-111) mmol/L Carbon Dioxide (21.0-31.0) mmol/L Anion Gap BUN (7-18) mg/dL Creatinine (0.6-1.3) mg/dL Est Cr Clr Drug Dosing mL/min Estimated GFR (MDRD) BUN/Creatinine Ratio Glucose (74-105) mg/dL Lactic Acid (0.5-2.2) mmol/L Calcium (8.4-10.2) mg/dl Total Bilirubin (0.2-1.0) mg/dL AST (10-42) IU/L ALT (10-60) IU/L Alkaline Phosphatase (42-121) IU/L Total Protein (6.7-8.2) g/dl Albumin (3.2-5.5) g/dl Globulin Albumin/Globulin Ratio Urine Color Yellow (YELLOW) Urine Appearance Clear (CLEAR) Urine pH 6.5 (5.0-9.0) Ur Specific Irving 1.020 (1.005-1.030) Urine Protein Negative (NEGATIVE) Urine Glucose (UA) Negative (NEGATIVE) Urine Ketones Negative (NEGATIVE) Urine Occult Blood Negative (NEGATIVE) Urine Nitrite Negative (NEGATIVE) Urine Bilirubin Negative (NEGATIVE) Urine Urobilinogen 0.2 (0.2-1.0) mg/dL Ur Leukocyte Esterase Negative (NEGATIVE) Urine RBC 0-5 /HPF Urine WBC 0-5 (0-5/HPF) /HPF Ur Epithelial Cells Few /HPF Urine Bacteria Few (0-FEW/HPF) /HPF Urinalysis Comment Urine HCG, Qual Negative Meds: Medications Discontinued Medications Generic Name Dose Route Start Last Admin Trade Name Freq PRN Reason Stop Dose Admin Sodium Chloride 10 ml 01/26/18 23:51 Saline Flush FLUSH ASDIRECTED PRN Keep Vein Open Departure - Departure Time of Disposition: 00:58 Disposition: Home, Self-Care 01 Condition: Fair Clinical Impression: Viral illness - Discharge Information Instructions: Viral Illness, Adult, [place] Nile Virus Referrals: Cheyenne Manley MD [Primary Care Provider] - Forms: ED Department Discharge Additional Instructions: Rest Drink plenty of fluids May use tylenol and/or ibuprofen as directed for pain/fever If no improvement Sunday, do not return to work, and follow up with your primary care facility - My Orders Last 24 Hours: My Active Orders 01/26/18 23:51 Peripheral IV Insertion Adult [OM.PC] Stat 01/26/18 23:52 Peripheral IV Care [RC] . DIRECTED 01/26/18 23:57 LYME, TOTAL AB TEST/REFLEX [REF] Urgent WEST NILE VIRUS IGM [REF] Stat 01/27/18 00:40 HCG QUALITATIVE,URINE [URCHEM] Stat UA W/MICROSCOPIC [URIN] Stat - Assessment/Plan Last 24 Hours: My Active Orders 01/26/18 23:51 Peripheral IV Insertion Adult [OM.PC] Stat 01/26/18 23:52 Peripheral IV Care [RC] . DIRECTED 01/26/18 23:57 LYME, TOTAL AB TEST/REFLEX [REF] Urgent WEST NILE VIRUS IGM [REF] Stat 01/27/18 00:40 HCG QUALITATIVE,URINE [URCHEM] Stat UA W/MICROSCOPIC [URIN] Stat
== END 2018-01-27 01:00 | disposition home or self-care (01) ==
LOC: DL.ED 23:38
DX: B34.9 Viral infection, unspecified (principal); Z87.891 Personal history of nicotine dependence
CPT/HCPCS: 36415; 80053; 81001; 81025; 83605; 85025; 86617; 86618; 86788; 99284

== ENCOUNTER 2020-09-03 05:52 | Day surgery (SDC) | payer BC, OTHER ==
[~2020-09-03 05:52] MED LIST: Sodium Chloride 0.9% 10 ML Syringe FLUSH PRN
[2020-09-03] MEDS ORDERED: Midazolam 1 MG/ML 2 ML SDV IV ONE ×7 (05:53→07:22)
[2020-09-03] MEDS ORDERED: fentaNYL 100 MCG/2 ML SDV IV ONE ×5 (05:53→07:25)
[2020-09-03] MEDS ORDERED: Dextrose 5%-0.45% NaCl 1,000 ML IV SCH (06:00)
[2020-09-03] MEDS ORDERED: fentaNYL 100 MCG/2 ML SDV ONE (06:16)
[2020-09-03] MEDS ORDERED: Midazolam 1 MG/ML 2 ML SDV ONE (06:16)
--- NOTE | 2020-09-03 09:47 | OR ---
DATE: 09/03/2020 PROCEDURES: 1. Total colonoscopy. 2. Terminal ileoscopy. 3. Multiple pinch biopsies. INSTRUMENT USED: PCF-H190DL Olympus videocolonoscope. PREMEDICATIONS: Fentanyl 150 mcg intravenous and Versed 4 mg intravenous. The procedure was done under pulse oximetry, BP recording, and bark peeler. INDICATIONS: The patient with chronic diarrhea and rectal bleeding, unexplained. Colonoscopic examination is done for detection of any polypoid lesions and removal, biopsies to be obtained for any evidence of microscopic colitis, and endoscopic hemostasis therapy if needed. DESCRIPTION OF PROCEDURE: Initial rectal exam showed small external hemorrhoidal tags. Rigid anoscopy was normal. The colonoscope was passed with ease up to and beyond the ileocecal junction to visualize a normal-appearing terminal ileum; photographs were taken; multiple pinch biopsies were obtained from the terminal ileum and sent for histopathology. Photographs were taken of the normal-appearing cecum. No bleeding was noted from any of the visualized areas at the commencement of the examination. The bowel preparation was found to be adequate, [place] Scale 2 in the right colon and 3 in the transverse and left colon, total score 8. No stricture. No vascular ectasia. No large isolated ulcerations were seen. No evidence of diffuse inflammatory bowel disease in the form of friability, contact bleeding, or ulcerations. No polyp or tumor mass was identified. Probing the proximal sides of folds and flexures using adequate distention and clearing up the stool material, withdrawal of the scope was made. Multiple pinch biopsies were taken from the normal-appearing mucosa of the mid transverse colon, mid descending colon, and rectosigmoid and sent for any histopathologic evidence of microscopic colitis. No bleeding was noted from any of the visualized areas at the completion of examination. IMPRESSION: External hemorrhoids. The patient tolerated the procedure well. [facility] /[id number]
[2020-09-03 10:52] VITALS: BP 108/67; PULSE 66
== END 2020-09-03 09:43 | disposition home or self-care (01) ==
LOC: DL.ENDO 05:52
PROVIDERS: ATTEND Internal Medicine Gastroenterology
DX: K63.89 Other specified diseases of intestine (principal); K52.9 Noninfective gastroenteritis and colitis, unspecified; Z98.890 Other specified postprocedural states
CPT/HCPCS: 45380; J2250; J3010; J7042